=== PATIENT | male | born 1990 | race Two or more races ===

== ENCOUNTER 2025-09-30 00:10 | Emergency (ER) | payer OTHER ==
[~2025-09-30] VITALS: Ht 160 cm; Wt 81.6 kg
[2025-09-30] MEDS ORDERED: MONTELUKAST SODI4 M1 PO (00:16)
[2025-09-30] MEDS ORDERED: FLONASE16 GM NS (00:17)
[2025-09-30] MEDS ORDERED: ZYRTEC10 M3 PO (00:17)
[2025-09-30] MEDS ORDERED: HYOSCYAMINE SULFATE 0.125 MG TAB.SUBL SL STA (02:02)
[2025-09-30] MEDS ORDERED: ONDANSETRON HCL 2 MG/ML VIAL IV STA (02:02)
[2025-09-30] MEDS ORDERED: LACTOBACILLUS ACIDOPHILUS 1 CAP CAP PO STA (02:03)
[2025-09-30] MEDS ORDERED: FAMOTIDINE/PF 20 MG/2 ML VIAL IV PUSH STA (02:03)
[2025-09-30] MEDS ORDERED: 0.9 % SODIUM CHLORIDE 1,000 ML IV ONE (02:15)
[2025-09-30 02:33] LABS: BASO % 0.2 % (0.1-1.2); EOS # 0.02 (0.04-0.54); EOS % 0.1 % (0.7-7.0); LYMPH # 0.42 (1.18-3.74); LYMPH % 3.1 % (19.3-53.1); MEAN PLATELET VOLUME 10.70 fl (9.4-12.4); MONO # 0.31 (0.24-0.82); MONO % 2.3 % (4.7-12.5); NEUT # 12.67 (1.56-6.13); NEUT % 93.6 % (34.0-71.1); RED CELL DISTRIBUTION WIDTH 11.7 % (11.6-14.4)
[2025-09-30 03:07] LABS: BUN CREA RATIO 12.0 (7.0-25.0); CREATININE SERUM 1.03 mg/dL (0.70-1.30); GFR 82.18; GLUCOSE FASTING 103.0 mg/dL (65-100); OSMOLALITY SERUM 276.0 MOSM/KG (275-295)
[2025-09-30 03:09] LABS: URINE APPEARANCE Clear; URINE BILIRRUBIN Negative (NEGATIVE); URINE BLOOD Negative; URINE COLOR Dark Yellow; URINE GLUCOSE Negative (NEGATIVE); URINE KETONE Trace (NEGATIVE); URINE LEUKOCYTE Trace; URINE NITRATE Negative; URINE PROTEIN 30 (NEGATIVE); URINE UROBILINOGEN 1.0 E.U./dl
[2025-09-30 03:10] LABS: URINE BACTERIA 21.5 uL (0.0-1933); URINE EPITHELIAL CELLS 9.3 uL (0.0-38.8); URINE RBC 25.2 uL (0.0-20.8); URINE WBC 9.2 uL (0.0-23.2)
[2025-09-30 03:28] LABS: URINE CAST 0.14 uL (0.0-1.40); URINE CRYSTALS FEW /HPF
[2025-09-30 03:29] LABS: URINE MUCUS MODERATE
[2025-09-30] MEDS ORDERED: INTESTINEX680 M1 PO (05:11)
[2025-09-30] MEDS ORDERED: PEPCID40 MG PO (05:11)
[2025-09-30] MEDS ORDERED: ZOFRAN8 MG PO (05:11)
== END 2025-09-30 05:20 | disposition home or self-care (01) ==
LOC: ER 00:11
PROVIDERS: General Practice
DX: A08.39 Other viral enteritis (principal)